=== PATIENT | female | born 1975 | race Caucasian/White ===

== ENCOUNTER 2018-04-16 12:18 | Observation (INO) | payer MEDICAID, SELFPAY ==
[2018-04-16] VITALS (16 sets, daily range): BP systolic 95–161; BP diastolic 58–101; PULSE 76–108; RESP 16–18; TEMP 36.2–36.9; O2SAT 80–98; BMI 40.8
--- NOTE | 2018-04-16 | HYST_PTH ---
PATIENT: SERGIO RAMSAY LOC: [facility] U#:[id number] AGE/SX: 42/F ROOM: MS211 RE04/16/[address]: Dr. Annie Floyd DO : 1975 BED: 1 DIS: 04/17/2018 SPEC #: [id number] RECD: 04/16/18 14:46 STATUS: [place] REMarie #: [id number] JOSTIN: 04/16/18 00:[address]: Annie Floyd DEPT: SURGICAL PATHOLOGY RECD BY: Perry Markham ENTERED: 04/16/18 14:46 SP TYPE: HYSTERECT OTHR DR: Dr. Lana Benavides MD Tissues: Uterus, NOS Procedures: Special Stain Group II Surgery Specimen Level V Amyloid Stain (control) HEADER OPERATION: ERAS, hysterectomy, lap-assisted vaginal, salpingectomy PRE-OP DIAGNOSIS: Patient requests hysterectomy TISSUE SUBMITTED: Uterus and bilateral fallopian tubes MICROSCOPIC DIAGNOSIS Uterus, hysterectomy: Cervix - squamous metaplasia, nabothian cysts and mild chronic inflammation. Endometrium - obliterated. Myometrium - microscopic leiomyomas. Right and left fallopian tubes - no pathologic change. AM:lexy 04/17/18 COMMENT The endometrial surface is obliterated and replaced by amorphous proteinaceous material. [place] red stain for amyloid is negative. Clinical correlation is suggested. Case has been reviewed in consultation with Dr. Mendez who concurs with the above diagnosis. IDC:NICK MICROSCOPIC DESCRIPTION Slides are reviewed. GROSS DESCRIPTION Received in fixative is one container labeled with the patient's name and designated uterus and bilateral fallopian tubes. The specimen consists of a hysterectomy specimen consisting of uterus with cervix and detached bilateral fallopian tubes. The uterus with cervix weighs 64 gm and measures 8.5 x 6 x 4 cm. The serosal surface is ragged. The left cornu shows a metallic coiled device consistent with Essure device. The ectocervical mucosa is unremarkable. The external os is circular in contour. The endocervical canal measures 3 cm in length and the endocervical mucosa is kenny, glistening and unremarkable. Sections of the cervix reveal a few cysts filled with mucoid material. The endometrial cavity appears to be completely obliterated. Sections of the uterine wall do not reveal any mass lesion and it measures up to 2.5 cm in thickness. No endometrial tissue is identified. The fallopian tubes are not identified as right or left and each measure 5 cm in length and 0.5 cm in diameter. The fimbrial end is identified only in one of the fallopian tubes. Sections of the fallopian tubes also show a metallic coiled device consistent with Essure device. Sections do not reveal any mass lesion. Manager Cardiac sections are submitted in eight cassettes as follows: 1 - anterior cervix, 2 - posterior cervix, 3 & 4 - anterior uterine wall, 5 & 6 - posterior uterine wall, 7 & 8 - bilateral fallopian tubes, each containing one fallopian tube. / NICK:lexy 04/16/18 TC:5 CPT: 74803, 74009
--- NOTE | 2018-04-16 07:41 | EKG12_ITS ---
Test Reason : PRE OP Blood Pressure : / mmHG Vent. Rate : 078 BPM Atrial Rate : 078 BPM P-R Int : 146 ms QRS Dur : 088 ms QT Int : 378 ms P-R-T Axes : 041 -07 -12 degrees QTc Int : 430 ms Normal sinus rhythm Confirmed by DEANA VALDEZ, VISHAL ([id number]), rewrite editor ABHISHEK FIGUEROA ([id number]) on 04/23/2018 11:17:32 AM Referred By: Annie Floyd Confirmed By:VISHAL LEBLANC MD
[2018-04-16 08:01] LABS: Internal QC Validated? YES +Cl - CLEAR BKGD; Pregnancy, Urine Negative Negative
[2018-04-16 08:05] LABS: Hematocrit 42.6 % (37-47); Hemoglobin 14.3 g/dl (12.0-15.0); Mean Corp Hgb Conc 33.6 g/gl (32-36); Mean Corpuscular Hgb 29.5 pg (27.0-32.0); Mean Platelet Vol. 9.4 fl (6.2-12.0); Platelet Count 325 K/mm3 (150-450); RBC Distribution Width CV 12.6 % (11.6-14.6); RBC Distribution Width SD 40.6 fl (35.1-43.9); Red Blood Count 4.84 M/mm3 (4.2-5.4)
[2018-04-16] MEDS: Magnesium Sulfate 4gm/100mL 4 GM/100 ML IV.SOLN. IV (08:05)
[2018-04-16 08:06] LABS: Scan Indicated on CBC? Y/N NO
[2018-04-16 08:11] LABS: International Normalized Ratio 0.9; Prothrombin Time (Protime)PT. 12.4 SECONDS (11.7-14.9)
[2018-04-16 08:23] LABS: AST(SGOT) 14 U/L (15-37); Alanine Aminotransfer ALT/SGPT 37 U/L (13-56); Albumin, Serum 3.7 g/dL (3.2-5.0); Alkaline Phosphatase 99 U/L (45-117); Anion Gap 8 (5-15); BUN 15 mg/dL (7-18); Bilirubin, Direct 0.13 mg/dL (0.00-0.30); Calcium,Total 8.7 mg/dL (8.5-10.1); Chloride 104 mmol/L (98-107); Creatinine, Serum 0.88 mg/dL (0.55-1.02); EST Glomerular Filtration Rate 74 mL/min (>60); Est Glom Filt Rate - Afr Amer 90 mL/min (>60); Estimated Creatinine Clearance 65.87 ml/min; Globulin 3.9 g/dL (2.2-4.2); Glucose 168 mg/dL (74-106); Potassium 3.8 mmol/L (3.5-5.1); Protein, Total 7.6 g/dL (6.4-8.2); Sodium Level 140 mmol/L (136-145)
[2018-04-16] MEDS: Phenazopyridine 95 MG Tablet 190 MG PO (08:38)
[2018-04-16] MEDS: Celecoxib 200 MG Capsule 400 MG PO (08:38)
[2018-04-16] MEDS: Acetaminophen 500 MG Tablet 1000 MG PO ×2 (08:39→17:40)
[2018-04-16] MEDS: Scopolamine 1mg/72hr Patch 1 PATCH TRANSDERM. (08:40)
[2018-04-16] MEDS: Enoxaparin 40 MG/0.4 ML Syringe SC (08:40)
[2018-04-16 08:56] LABS: Hemoglobin A1c 7.8 % (4.2-6.3)
[2018-04-16 09:26] LABS: Bedside Glucose 168 mg/dL (70-110)
--- NOTE | 2018-04-16 09:42 | PCM.OPRPT ---
Problem List (1) Abnormal uterine bleeding (AUB) Status: Acute (2) History of endometrial ablation Status: Acute Report of Operation Date of Procedure: 04/16/18 Pre-Operative Diagnosis: AUB, h/o endometrial ablation Post-Operative Diagnosis: As above Surgery/Procedure Performed:: LAVH, BS, cystoscopy Description of Surgical Findings:: Uterus retroverted and otherwise normal appearing. Normal-appearing bilateral fallopian tubes and bilateral ovaries. Bladder densely adhered to the mid uterus. Omental adhesions in the mid abdomen and right upper quadrant. Bladder with brown-black colored lesions scattered throughout on cystoscopy. Good bilateral ureteral jets noted Type of Anesthesia:: General Specimen's removed: Uterus, cervix, bilateral fallopian tubes Drains: Correa Estimated Blood Loss (mL): 200 Fluids Replaced: 1200 Description of Procedure: Power Builder Developer: Dr. Michelle Wheatley Indications: Patient is a 42-year-old who had a endometrial ablation in 2008. She presented with new onset abnormal bleeding, and was having bleeding anywhere from 7-30 days with brief periods of no bleeding. Endometrial biopsy was performed with limited benign endometrium. A pelvic ultrasound was performed and unremarkable. Risks, benefits, and alternatives were discussed and the patient desired a hysterectomy for abnormal bleeding after ablation. Procedure: General anesthesia was induced and the patient was placed in the dorsal lithotomy position. The abdomen, perineum, and vagina were prepped and draped in the usual sterile fashion. A Correa catheter was inserted to the bladder. A weighted speculum was placed in the vagina to visualize the cervix, and the anterior lip of the cervix was grasped with a single-tooth tenaculum. The cervix was notably stenotic. A Fina cannula was placed for uterine manipulation. Attention was then turned to the abdomen. Following infiltration with Marcaine a 5mm infraumbilical incision was made to accommodate a 5 mm scope which was inserted under direct visualization. Once confirmed intraperitoneum, CO2 infiltration was started to obtain a pneumoperitoneum of 15 mmHg. A left lateral 5 mm trocar was then placed under visualization. A right lateral 5 mm trocar was placed under visualization. With manipulation of the uterus dense bladder adhesions were noted, and the uterus was significantly retroverted. Therefore a 5 mm suprapubic port was placed for assistance. The left fallopian tube was followed out to the fimbriated end. The mesosalpinx was then sequentially clamped, cauterized, and cut using the LigaSure device working alongside the tube and towards the cornua. The left tube was then removed. The left round ligament was then cauterized and ligated using the LigaSure device. The anterior leaflet of the broad ligament was then taken down on the left side dissecting towards the peritoneal reflection. It was difficult to create a bladder flap given the dense adhesions of the bladder to the midportion of the uterus. The right fallopian tube was then elevated and followed out to the fimbriated end. The right mesosalpinx was then sequentially clamped, cauterized, and cut using the LigaSure device working alongside the tube and towards the cornea. The right fallopian tube was then removed. The right round ligament was then cauterized and cut using the LigaSure device. The anterior leaflet of the broad ligament was then taken down on the right side, dissecting towards the peritoneal reflection. The bladder flap was again difficult due to the very dense adhesions. The bladder was backfilled using Methylene Blue to better visualize a plane. Using monopolar scissors, the tissue was scored where the bladder reflection was noted over the uterus. Using a combination of blunt and sharp dissection the bladder was then carefully dissected off of the the anterior uterus. Along the left side, the uterine artery was then skeletonized and cauterized. Along the right side, the uterine artery was then skeletonized and cauterized. Attention was then turned below. A weighted speculum was then placed in the posterior aspect of the vagina. Tenaculum was placed anteriorly and posteriorly in the cervix. 1% lidocaine was injected along the cervical vaginal reflection. A circumferential incision was then made at the cervical vaginal reflection using a scalpel. This was undermined first anteriorly but we were unable to enter the peritoneum. Attention was then turned posteriorly where the peritoneum was easily entered. Jillian retractors were then placed first on the patient's left side along the uterosacral and cardinal ligaments which were clamped, divided, and suture-ligated. The same was performed on the patient's right side. Two bites were taken on either side. We then dissected more anteriorly to enter the peritoneum. The Jillian retractors were then used again to serially clamped, divided, and suture ligate along the cardinal ligaments. The uterus and cervix were removed. All pedicles were inspected and hemostasis was confirmed. A PDS suture was then used to perform a Mercado's culdoplasty. Several [id number] sutures were then placed across across the vaginal vault to close the vaginal cuff. All sutures were trimmed. Cystoscopy was performed noting an intact bladder, and good bilateral ureteral jets. There were multiple areas of brown to black lesions scattered throughout on the bladder mucosa. Pictures were taken of the discoloration of the bladder mucosa. A wet sponge was placed in the vagina and attention was turned back to the abdomen. Using laparoscopic irrigation device the abdomen was irrigated and inspected to ensure complete hemostasis. All instruments were then removed. The port were removed under direct visualization. The incisions were then closed with Monocryl suture and glue. Estimated blood loss was 200 cc. Patient tolerated the procedure well. She was taken to recovery room in stable condition. All sponge, instrument, and sharp counts were correct x2 - Complications None - Admit VTE Documentation VTE Present on Admission: No VTE Mechan Device Prophylaxis: SCD's
[2018-04-16] MEDS: Bupivacaine 0.25% 30 ML Vial (12:20)
[2018-04-16] MEDS: Insulin Lispro 100 UNIT/ML INSULN.PEN SC ×3 (13:00→22:01)
[2018-04-16 14:05] LABS: Bedside Glucose 261 mg/dL (70-110)
[2018-04-16 15:10] LABS: Bedside Glucose 288 mg/dL (70-110)
[2018-04-16 15:10] LABS: Bedside Glucose 262 mg/dL (70-110)
[2018-04-16] MEDS: Lactated Ringers 1,000 ML 100 ML IV (16:38)
[2018-04-16] MEDS: hydroCHLOROthiazide 12.5mg 12.5 MG PO (16:39)
[2018-04-16] MEDS: Gabapentin 800 MG Tablet PO (16:39)
[2018-04-16 16:40] LABS: Bedside Glucose 243 mg/dL (70-110)
[2018-04-16] MEDS: Ibuprofen 400 MG Tablet 800 MG PO (16:40)
[2018-04-16] MEDS: oxyCODONE 5 MG Tablet PO (19:48)
[2018-04-16] MEDS: Docusate Sodium 100 MG Capsule PO (21:58)
[2018-04-16] MEDS: Atorvastatin Calcium 20 MG Tablet PO (21:58)
[2018-04-16 22:06] LABS: Bedside Glucose 262 mg/dL (70-110)
[2018-04-17] MEDS: Acetaminophen 500 MG Tablet 1000 MG PO ×2 (00:47→05:23)
[2018-04-17] MEDS: Ibuprofen 400 MG Tablet 800 MG PO (00:49)
[2018-04-17 02:10] VITALS: BP 122/76; PULSE 100; RESP 14; TEMP 37.4; O2SAT 96
[2018-04-17] MEDS: Lactated Ringers 1,000 ML 100 ML IV (02:10)
[2018-04-17] MEDS: oxyCODONE 5 MG Tablet PO (05:23)
[2018-04-17] MEDS: Insulin Lispro 100 UNIT/ML INSULN.PEN SC (06:45)
[2018-04-17 07:28] LABS: Hematocrit 35.7 % (37-47); Mean Corp Hgb Conc 33.6 g/gl (32-36); Mean Corpuscular Volume 89.3 fL (81-99); Mean Platelet Vol. 9.9 fl (6.2-12.0); Platelet Count 315 K/mm3 (150-450); RBC Distribution Width CV 12.5 % (11.6-14.6); RBC Distribution Width SD 40.3 fl (35.1-43.9); Scan Indicated on CBC? Y/N NO; White Blood Count 16.7 K/mm3 (4.4-11.0)
[2018-04-17 07:48] LABS: BUN 16 mg/dL (7-18); Creatinine, Serum 1.05 mg/dL (0.55-1.02); Glucose 206 mg/dL (74-106)
[2018-04-17 07:49] LABS: Anion Gap 8 (5-15); BUN/Creat Ratio 15.2 RATIO (10-20); Calcium,Total 8.5 mg/dL (8.5-10.1); Chloride 102 mmol/L (98-107); EST Glomerular Filtration Rate 61 mL/min (>60); Est Glom Filt Rate - Afr Amer 74 mL/min (>60); Potassium 3.8 mmol/L (3.5-5.1); Sodium Level 138 mmol/L (136-145)
[2018-04-17 07:57] VITALS: O2SAT 95
--- NOTE | 2018-04-17 08:04 | PCM.PN.OB ---
Patient Problems: Active and Suspected Problems Abnormal uterine bleeding (AUB) (Acute) History of endometrial ablation (Acute) Subjective: She is doing well. Pain is well controlled with minimal pain medication. She is ambulating and spontaneously voiding without difficulty. She tolerated a diabetic diet last night without nausea or vomiting. She denies lightheadedness, dizziness, chest pain, shortness of breath, leg pain. She feels ready to go home today. - Physical Exam General: Alert, No apparent distress HEENT: Atraumatic Lungs: - - No increased resp effort Abdomen: Soft, Non-Distended, - - ATTP, incisions c/d/i Extremities: No edema, No Calf Tenderness Skin: No rashes Neurological: Neuro grossly intact Psych/Mental Status: Normal Affect, Appropriate Vital Signs Temp Pulse Resp BP Pulse Ox 99.4 F H 100 14 122/76 H 95 04/17/18 02:10 04/17/18 02:10 04/17/18 02:10 04/17/18 02:10 04/17/18 07:57 Oxygen Flow Rate (L/min) 1 Oxygen Delivery Method Room Air Weight: 230 lb 13.184 oz Body Mass Index (BMI) 40.8 Finger Stick Blood Glucose 261 Intake and Output for Last 24 Hours 04/15/18 04/16/18 04/17/18 23:59 23:59 23:59 Intake Total 1927 / 1927 2131 / 2131 Output Total 395 / 395 600 / 600 Balance 1532 / 1532 1531 / 1531 Laboratory Tests Past 24 Hrs 04/16/18 04/16/18 04/16/18 07:58 07:58 07:58 WBC 10.0 RBC 4.84 Hgb 14.3 Hct 42.6 MCV 88.0 MCH 29.5 MCHC 33.6 RDW 12.6 RDW Differential 40.6 Plt Count 325 MPV 9.4 PT 12.4 INR 0.9 APTT 24.0 L Sodium Potassium Chloride Carbon Dioxide Anion Gap BUN Creatinine Estim Creat Clear Calc Est GFR (MDRD) Af Amer Est GFR (MDRD) Non-Af BUN/Creatinine Ratio Glucose Hemoglobin A1c Calcium Total Bilirubin Direct Bilirubin AST ALT Alkaline Phosphatase Total Protein Albumin Globulin Blood Type B POSITIVE Antibody Screen NEGATIVE 04/16/18 04/16/18 04/17/18 07:58 07:58 06:57 WBC 16.7 H RBC 4.00 L Hgb 12.0 Hct 35.7 L MCV 89.3 MCH 30.0 MCHC 33.6 RDW 12.5 RDW Differential 40.3 Plt Count 315 MPV 9.9 PT INR APTT Sodium 140 Potassium 3.8 Chloride 104 Carbon Dioxide 28.0 Anion Gap 8 BUN 15 Creatinine 0.88 Estim Creat Clear Calc 65.87 Est GFR (MDRD) Af Amer 90 Est GFR (MDRD) Non-Af 74 BUN/Creatinine Ratio 17.0 Glucose 168 H Hemoglobin A1c 7.8 H Calcium 8.7 Total Bilirubin 0.60 Direct Bilirubin 0.13 AST 14 L ALT 37 Alkaline Phosphatase 99 Total Protein 7.6 Albumin 3.7 Globulin 3.9 Blood Type Antibody Screen 04/17/18 06:57 WBC RBC Hgb Hct MCV MCH MCHC RDW RDW Differential Plt Count MPV PT INR APTT Sodium 138 Potassium 3.8 Chloride 102 Carbon Dioxide 28.0 Anion Gap 8 BUN 16 Creatinine 1.05 H Estim Creat Clear Calc 55.20 Est GFR (MDRD) Af Amer 74 Est GFR (MDRD) Non-Af 61 BUN/Creatinine Ratio 15.2 Glucose 206 H Hemoglobin A1c Calcium 8.5 Total Bilirubin Direct Bilirubin AST ALT Alkaline Phosphatase Total Protein Albumin Globulin Blood Type Antibody Screen POC Glucose 04/16/18 04/16/18 04/16/18 21:59 16:30 13:57 POC Glucose 262 H 243 H 261 H 04/16/18 04/16/18 04/16/18 12:34 12:32 08:32 POC Glucose 262 H 288 H 168 H Medical Necessity - Tobacco Use Smoking Status: Current every day smoker Tobacco Use: Cigarettes Assessment/Plan All Active Problems Abnormal uterine bleeding (AUB) (Acute) History of endometrial ablation (Acute) POD#1 s/p LAVH, BS, cysto - AF, VSS - Doing well and meeting all milestones - Discussed to f/u PCP about possible LIUGI. Also discussed to call if BG's remain in the 200's, but this is likely due to stress response from surgery - Reviewed surgery and findings. Discussed brown-black lesions on bladder and recommended f/u with urology - Reviewed discharge instructions and follow up - D/c home today
--- NOTE | 2018-04-17 08:10 | DCINST_ITS ---
- Discharge Diagnoses Current Active Problems: Current Active and Chronic Problems Abnormal uterine bleeding (AUB) (Acute) History of endometrial ablation (Acute) You will use the following diet at home:: No restrictions Discharge Activity: May not drive while taking narcotic pain medications., May Shower May shower in (days): 0 May resume sexual activity in: 6 weeks Weight Bearing Status: Weight bearing as tolerated Lifting Restrictions: Nothing > 20 lbs Call your doctor if your incision/area has: Sudden Increased Bleeding, Increased Redness, Foul Smelling Discharge, Swelling at the incision site Call your doctor if you observe: Fever of 101 or Higher, Inability to urinate, Inability to have a bowel movement, Using more than one pad per hour, Shortness of breath, Chest pain, Increased palpitations (irregular heartbeat), Calf discomfort, Uncontrolled pain Cleanse incision/area with: Soap & Water Instructions: Laparoscopic Hysterectomy: Your Home Recovery Allergies/Adverse Reactions: Allergies ketorolac [From Toradol] Adverse Reaction (Verified 04/13/18 08:41) Upset Stomach Medications to take at Discharge Atorvastatin Calcium [Lipitor] 20 mg PO QHS 04/13/18 Ergocalciferol [Vitamin D] 50,000 unit PO FR 04/13/18 Gabapentin [Neurontin] 800 mg PO TIDCM 04/13/18 Hydrochlorothiazide 12.5 mg PO DAILY 04/13/18 Metformin HCl [Glucophage] 1,000 mg PO BIDCM 04/13/18 Zolpidem Tartrate [Ambien] 5 mg PO PRN PRN 04/13/18 traMADol [Ultram (G)] 50 mg PO BID 04/13/18 Primary Care Physician: Lana Benavides MD [Primary Care Provider] - Test Results: Test results from this visit will be discussed in further detail at your follow- up appointment, if applicable. Please Follow Up With: Annie Floyd DO - for post op appointment When: 6 weeks Please Follow Up With: Dr. Glover - with urology
[2018-04-17 09:05] VITALS: BP 154/94; PULSE 96; RESP 18; TEMP 36.4; O2SAT 96
[2018-04-17] MEDS: Gabapentin 800 MG Tablet PO (09:10)
[2018-04-17] MEDS: Docusate Sodium 100 MG Capsule PO (09:10)
[2018-04-17] MEDS: hydroCHLOROthiazide 12.5mg 12.5 MG PO (09:10)
[2018-04-17] MEDS: Enoxaparin 40 MG/0.4 ML Syringe SC (09:10)
[2018-04-17 18:05] LABS: Bedside Glucose 220 mg/dL (70-110)
== END 2018-04-17 11:40 | disposition home or self-care (01) ==
LOC: SDC 12:50 → MS2 04-17 06:49
PROVIDERS: Anesthesiology; Admitting Provider Obstetrics & Gynecology; Family Provider Internal Medicine; PCP Internal Medicine; Referring Provider Obstetrics & Gynecology; Visit Provider Obstetrics & Gynecology
PROC: 0UT9FZZ Resection of Uterus, Via Natural or Artificial Opening With Percutaneous Endoscopic Assistance (ICD-10-PCS; CPT 58552; principal; 2018-04-16 09:15)
DX: D25.9 Leiomyoma of uterus, unspecified (principal); N88.8 Other specified noninflammatory disorders of cervix uteri; N85.4 Malposition of uterus; F17.210 Nicotine dependence, cigarettes, uncomplicated; E11.9 Type 2 diabetes mellitus without complications; Z79.899 Other long term (current) drug therapy; Z79.84 Long term (current) use of oral hypoglycemic drugs; I10 Essential (primary) hypertension; K21.9 Gastro-esophageal reflux disease without esophagitis; K58.9 Irritable bowel syndrome, unspecified; E78.00 Pure hypercholesterolemia, unspecified; M79.7 Fibromyalgia; G47.33 Obstructive sleep apnea (adult) (pediatric); G89.29 Other chronic pain
CPT/HCPCS: 00940; 58552; 36415; 80048; 80076; 81025; 82962; 83036; 85027; 85610; 85730; 86850; 86900; 88307; 88313; 93005; 94762; 96361; 96372; 96374; 99218; 99406; J7050; J7120; G0378; G0379; J2405

== ENCOUNTER → 2018-05-12 13:22 | Outpatient (CLI) | payer MEDICAID, SELFPAY ==
[2018-04-16 14:55] VITALS: BMI 40.8
--- NOTE | 2018-05-12 13:24 | CT_ITS ---
STUDY: CT ABDOMEN AND PELVIS WITH AND WITHOUT CONTRAST REASON FOR EXAM: Female, 42 years old. Hematuria RADIATION DOSAGE (If Supplied By Facility): CTDIvol = ( 23.09 ) mGy, DLP = ( 2028.77 ) mGycm TECHNIQUE: Transaxial images were obtained from the dome of the diaphragm to the symphysis pubis without oral contrast. 100CC ml of Isovue 300 contrast was administered. Sagittal and coronal images were reconstructed. Individualized dose optimization techniques were used for this CT. COMPARISON: None. FINDINGS: The lung bases are clear. There is fatty infiltration of the liver No dilated intrahepatic biliary radicles. Previous cholecystectomy. The spleen is normal. The pancreas is normal. Both adrenals are normal. The kidneys are normal with no masses, calculi or hydronephrosis The stomach is normal. There is no bowel distention, acute appendicitis or diverticulitis. No constricting lesions are seen in large bowel. The abdominal wall is intact with no hernias. There is no ascites or any free intraperitoneal air. No indication of epiploic appendagitis The vascular structures in the retroperitoneum are normal. There is no retrocrural, retroperitoneal or mesenteric adenopathy. The bones and joints are normal. The urinary bladder is normal.--Previous hysterectomy. There is no inguinal or pelvic adenopathy. There is no inguinal hernia. . CT/CT Abd/Pelvis W/WO Contrast IMPRESSION: No acute findings in the abdomen or pelvis. Specifically there is no kidney stones, hydronephrosis or urinary bladder calculi. No acute appendicitis or diverticulitis. Electronically Signed: Rachid Randle MD at 6:26 EST Tel , Service support ,
== END ==
PROVIDERS: Family Provider Internal Medicine; PCP Internal Medicine; Referring Provider Urology; Visit Provider Urology
DX: N20.0 Calculus of kidney (principal)
CPT/HCPCS: 74178; Q9967

== ENCOUNTER 2018-05-26 11:49 | Day surgery (SDC) | payer MEDICAID, SELFPAY ==
[2018-05-26 12:25] VITALS: BP 146/95; PULSE 86; RESP 16; TEMP 37.2; O2SAT 99; BMI 42.5
[2018-05-26 12:46] LABS: Bedside Glucose 152 mg/dL (70-110)
[2018-05-26 13:11] LABS: Hematocrit 44.3 % (37-47); Hemoglobin 14.6 g/dl (12.0-15.0); Mean Corpuscular Hgb 29.2 pg (27.0-32.0); Mean Corpuscular Volume 88.6 fL (81-99); Mean Platelet Vol. 9.9 fl (6.2-12.0); Platelet Count 351 K/mm3 (150-450); RBC Distribution Width CV 12.9 % (11.6-14.6); RBC Distribution Width SD 41.5 fl (35.1-43.9)
--- NOTE | 2018-05-26 13:11 | OP.PCM_ITS ---
Problem List (1) Bladder neoplasm of uncertain malignant potential Status: Acute Report of Operation Date of Procedure: 05/26/18 Pre-Operative Diagnosis: bladder neoplasm of uncertain malignant potential Post-Operative Diagnosis: same Surgery/Procedure Performed:: cystoscopy, bladder biopsy with fulguration Description of Surgical Findings:: lesion about 5mm on the left trigone about 1cm medial to the left ureteral orifice. removed, fulgurated, no injury to UO. Type of Anesthesia:: General Specimen's removed: bladder biopsy Description of Procedure: The patient is a 42-year-old female who had hysterectomy approximately 4 weeks ago with an abnormality identified on cystoscopy following the proc edure. I repeated the cystoscopy and in the office and identified the same approximately 5-7 mm lesion on the area of the trigone closer to the patient's left ureteral orifice. I obtained informed consent and the patient agreed to proceed with biopsy under anesthesia The patient was taken to the operating room and placed on the operating room table. Anesthesia monitored the head, neck, airway, IV access, vital signs throughout the case. Once anesthesia was administered, the patient was placed into dorsal lithotomy position was prepped and draped in usual sterile fashion. A cystourethroscopy was performed once again revealing the same lesion on the area of the trigone with no other abnormalities identified. Using the flexible biopsy forcep the lesion was removed with an total of 3 bites. These were sent for permanent pathology. At this time the area was fulgurated for hemostatic control and tissue treatment. I emptied her bladder and the case was terminated. She was awakened and taken to the recovery room in good condition. There were no complications during this procedure. Grafts/Implants Used: none - Complications none - Admit VTE Documentation VTE Present on Admission: Yes VTE Mechan Device Prophylaxis: SCD's VTE Pharm Prophylaxis ordered?: No Reason prophylaxis not ordered:: Treatment Not Indicated
[2018-05-26 13:12] LABS: Scan Indicated on CBC? Y/N NO
--- NOTE | 2018-05-26 13:12 | DCINST_ITS ---
Discharge Diet: No Restrictions Discharge Activity: May not drive while taking narcotic pain medications. May resume sexual activity in: 2 weeks Call your doctor if you observe: Fever of 101 or Higher, Inability to urinate, Inability to have a bowel movement, Shortness of breath, Chest pain, Calf discomfort, Uncontrolled pain Allergies/Adverse Reactions: Allergies ketorolac [From Toradol] Adverse Reaction (Verified 05/26/18 12:22) Upset Stomach Medications to take at Discharge Atorvastatin Calcium [Lipitor] 20 mg PO QHS 04/13/18 Ergocalciferol [Vitamin D] 50,000 unit PO FR 04/13/18 Gabapentin [Neurontin] 800 mg PO TIDCM 04/13/18 Hydrochlorothiazide 12.5 mg PO DAILY 04/13/18 Metformin HCl [Glucophage] 1,000 mg PO BIDCM 04/13/18 Zolpidem Tartrate [Ambien] 5 mg PO PRN PRN 04/13/18 traMADol [Ultram (G)] 50 mg PO BID 04/13/18 Omeprazole Magnesium [Prilosec Otc] 20 mg PO PRN PRN 05/19/18 Primary Care Physician: Lana Benavides MD [Primary Care Provider] - Test Results: Test results from this visit will be discussed in further detail at your follow- up appointment, if applicable. Please Follow Up With: Shoshana Bains MD When: 1 week, call office for appt. Proposed Discharge Date: 05/26/18
[2018-05-26] MEDS: Cefazolin 2 GM in 0.9% Normal Saline 100 ML IV (13:19)
--- NOTE | 2018-05-26 13:50 | BLA_PTH ---
PATIENT: SERGIO RAMSAY LOC: [facility] [place] U#:[id number] AGE/SX: 42/F ROOM: RE05/26/[address]: Dr. Shoshana Bains MD : 1975 BED: DIS: 05/26/2018 SPEC #: [id number] RECD: 05/26/18 14:42 STATUS: [place] REMarie #: [id number] JOSTIN: 05/26/18 13:[address]: Shoshana Bains DEPT: SURGICAL PATHOLOGY RECD BY: Michel Gil ENTERED: 05/26/18 14:50 SP TYPE: BLADDER BX OTHR DR: Dr. Lana Benavides MD Tissues: Urinary bladder, NOS Procedures: Surgery Specimen Level IV HEADER OPERATION: Cystoscopy, bladder biopsy with fulguration PRE-OP DIAGNOSIS: Neoplasm of uncertain behavior of bladder TISSUE SUBMITTED: Bladder biopsy MICROSCOPIC DIAGNOSIS Urinary bladder, biopsy: Cystitis cystica et glandularis. AM:lexy 05/27/18 COMMENT Case has been reviewed in consultation with Dr. Mendez who concurs with the above diagnosis. IDC:NICK MICROSCOPIC DESCRIPTION Slides are reviewed. GROSS DESCRIPTION Received in fixative is one container labeled with the patient's name and designated bladder biopsy. The specimen consists of two irregular fragments of kenny soft tissue that in aggregate measure 0.3 x 0.3 x 0.1 cm. The entire specimen is submitted in one cassette. / NICK:lexy 05/26/18 TC:5 CPT: 53945
[2018-05-26 14:05] VITALS: BP 122/76; BP 146/95; PULSE 77; RESP 17; TEMP 37.1; O2SAT 96
[2018-05-26 14:15] VITALS: BP 113/69; BP 146/95; PULSE 73; RESP 18; O2SAT 99
[2018-05-26 14:30] VITALS: BP 119/82; BP 146/95; PULSE 71; RESP 18; O2SAT 100
[2018-05-26 14:47] VITALS: BP 140/98; BP 146/95; PULSE 83; RESP 18; TEMP 36.4; O2SAT 100
[2018-05-26 15:01] LABS: Bedside Glucose 110 mg/dL (70-110)
[2018-05-26 15:22] VITALS: BP 146/95
== END 2018-05-26 15:24 | disposition home or self-care (01) ==
LOC: SDC 11:51 → AC 11:51
PROVIDERS: Anesthesiology; Family Provider Internal Medicine; PCP Internal Medicine; Referring Provider Urology; Visit Provider Urology
PROC: 0TBB8ZX Excision of Bladder, Via Natural or Artificial Opening Endoscopic, Diagnostic (ICD-10-PCS; CPT 52204; principal; 2018-05-26 13:40)
DX: D41.4 Neoplasm of uncertain behavior of bladder (principal); N30.81 Other cystitis with hematuria; R35.1 Nocturia; I10 Essential (primary) hypertension; E78.00 Pure hypercholesterolemia, unspecified; E11.9 Type 2 diabetes mellitus without complications; K21.9 Gastro-esophageal reflux disease without esophagitis; F17.200 Nicotine dependence, unspecified, uncomplicated; Z87.442 Personal history of urinary calculi; Z79.84 Long term (current) use of oral hypoglycemic drugs; Z79.899 Other long term (current) drug therapy
CPT/HCPCS: 52204; 82962; 85027; 88305; J7120